=== PATIENT | male | born 1960 | race Caucasian/White ===

== ENCOUNTER 2019-08-03 15:25 | Emergency (ER) | payer SELFPAY ==
[~2019-08-03] VITALS: Ht 165.1 cm; Wt 77.0 kg
[2019-08-03] MEDS ORDERED: SODIUM CHLORIDE 0.9% 1,000 ML IV ONE (15:49)
[2019-08-03 16:50] LABS: EOSINOPHILS % 2.4 % (0.0-5.0); HEMATOCRIT. 44.8 % (42.0-52.0); HEMOGLOBIN. 15.1 g/dL (14.0-18.0); LYMPHOCYTES % 30.9 % (20.0-50.0); MEAN CORPUSCULAR HEMOGLOBIN 30.7 pg (28.0-32.0); MEAN CORPUSCULAR VOLUME 91.1 fL (80.0-94.0); MEAN PLATELET VOLUME 8.6 fl (7.4-10.4); NEUTROPHILS % 60.7 % (40.0-76.0); PLATELET 243 x1000/uL (130-400); RED BLOOD CELL COUNT 4.92 mill/uL (4.7-6.1); RED CELL DISTRIBUTION WIDTH 12.4 % (11.6-14.6)
[2019-08-03 16:57] LABS: CHLORIDE 102 mEq/L (98-107)
[2019-08-03 17:03] LABS: ETHANOL BLOOD 172 mg/dL
[2019-08-03 17:32] VITALS: BP 146/77
== END 2019-08-03 17:57 | disposition home or self-care (01) ==
LOC: ER 15:25
DX: F10.129 Alcohol abuse with intoxication, unspecified (principal); Y90.6 Blood alcohol level of 120-199 mg/100 ml
CPT/HCPCS: 36415; 80053; 80320; 85025; 93005; 99284; J7030; Z7610; G0480